=== PATIENT | female | born 1970 ===

== ENCOUNTER 2023-02-22 19:38 | Emergency (ER) | payer BC, SELFPAY ==
[2023-02-22 19:49] VITALS: BP 150/84; PULSE 60; RESP 16; TEMP 36.7; O2SAT 97; BMI 45.4
--- NOTE | 2023-02-22 20:31 | W.ED.ARRPALP ---
HPI - Arrhythmia/Palpitations General: Chief Complaint: Arrhythmia/Palpitations Stated Complaint: possible afib, fast heart rate Time Seen by Provider: 02/22/23 20:00 Source: patient and family (spouse) Mode of arrival: ambulatory Limitations: no limitations History of Present Illness: See nursing assessment. Patient with complaints of increased palpitations and fluttering in her chest for the past 2 days. She also had some mild substernal chest discomfort about a week ago. She denies any chest pain now. She states she felt like this might be due to her asthma so she has been taking albuterol inhaler more often than usual. She denies any shortness of breath at this time. She denies any fever. Denies any cough. Denies any abdominal pain. Denies any back pain. She states that her Apple Watch picked up arrhythmia on the watch. It diagnosed the arrhythmia as atrial fibrillation. I did inspect the arrhythmia that she was talking about. The arrhythmia appears to be normal sinus rhythm with occasional PACs. This is consistent with her telemetry here. I did not see the atrial fibrillation. She does drink coffee. Associated symptoms: Deny anxiety, nausea, pre-syncope, syncope or vomiting Review of Systems Const: Denies: fever(s) or chills Eyes: Denies: change in vision ENMT: Denies: throat pain Card: Reports: chest pain, palpitations and irregular heart rhythm; Denies: edema, swelling of feet/ankles, lightheadedness, syncope or pre-syncope Resp: Denies: dyspnea or wheezing GI: Denies: abdominal pain, nausea or vomiting : Denies: flank pain Musc: Denies: neck pain or back pain Skin/Breast: Denies: rash or pruritus Neuro: Denies: headache(s) or numbness in extremities Psych: Denies: anxiety Pop/Lymph: Denies: enlarged lymph nodes PFSH ED Supplemental PFSH Information: History of thyroidectomy on thyroid supplements Physical Exam Const: COMMON NORMALS: no acute distress, patient oriented x3, no limitations and well nourished GENERAL APPEARANCE: cooperative HENMT: COMMON NORMALS: normocephalic and atraumatic HEAD & SCALP: normocephalic and atraumatic FACE & SINUS: normal facial exam Eye: COMMON NORMALS: EOMs intact bilaterally Neck/C-Spine: COMMON NORMALS: full ROM, no lymphadenopathy, supple and no meningeal signs GENERAL: Yes normal visual inspection OTHER: No thyroid nodules palpated Lymph: LYMPHATIC: no lymphadenopathy noted Chest: COMMONS NORMALS: normal inspection of the chest and normal palpation of entire chest wall CHEST: No Ecchymosis present and No rash Resp: COMMON NORMALS: normal respiratory effort, No retractions and clear to auscultation bilaterally EFFORT & INSPECTION: No respiratory distress AUSCULTATION: clear to auscultation bilaterally Cardio: COMMON NORMALS: regular rate, regular rhythm and Peripheral pulses 2+ throughout JUGULAR VENOUS DISTENTION: no JVD RATE: regular rate RHYTHM: regular rhythm PERIPHERAL PULSES: Peripheral pulses 2+ throughout OTHER: .No palpitations on exam. GI: COMMON NORMALS: Normal to inspection, nondistended, normoactive bowel sounds present, Soft to palpation, non-tender, No hepatosplenomegaly present and no masses PALPATION: Yes Soft to palpation and Yes No hepatosplenomegaly present OTHER: Morbid obesity. : COMMON NORMALS: Yes no CVA tenderness BLADDER/KIDNEY EXAM: Yes no CVA tenderness Back/Pelvis: COMMON NORMALS: no CVA tenderness Extremity: COMMON NORMALS: normal to inspection, full ROM and capillary refill normal Neuro: COMMON NORMALS: patient oriented x3, CN's II-XII intact bilaterally, no focal motor deficits and no sensory deficits noted MENINGEAL SIGNS: Yes no meningeal signs Psych: COMMON NORMALS: mental status grossly normal and Normal thought process present THOUGHT PROCESS: Normal thought process present Skin: COMMON NORMALS: no rashes or lesions noted and no wounds GENERAL SKIN EXAM: no rashes or lesions noted Course Vital Signs: Vital signs: Vital Signs Temperature 98.0 F 02/22/23 19:49 Pulse Rate 53 L 02/22/23 21:27 Respiratory Rate 16 02/22/23 19:49 Blood Pressure 129/74 02/22/23 21:27 Pulse Oximetry 97 02/22/23 19:49 Oxygen Delivery Me thod Room Air 02/22/23 21:27 MDM - Arrhythmia/Palpitations Medical Decision Making 52-year-old female with complaints of palpitations and fluttering in her chest. She did have chest pain last week. Telemetry here shows occasional PVCs and occasional PACs. Patient mostly in sinus bradycardia heart rate in the upper 50s and normal sinus rhythm and the rate in the 60s. Differential diagnoses include atrial fibrillation, SVT, PVCs, PACs, palpitations, ventricular tachycardia. Possible electrolyte disturbance. Lab Data 02/22/23 20:42 02/22/23 20:42 Laboratory Results WBC 6.17 10^3/uL (3.29-11.43) 02/22/23 20:42 RBC 4.87 10^6/uL (3.85-5.65) 02/22/23 20:42 Hgb 14.90 g/dL (11.27-16.99) 02/22/23 20:42 Hct 44.5 % (36-47) 02/22/23 20:42 MCV 91.4 fl (85-98) 02/22/23 20:42 MCH 30.6 pg (27-33) 02/22/23 20:42 MCHC 33.5 g/dL (30-55) 02/22/23 20:42 RDW 13.7 % (12.1-15.1) 02/22/23 20:42 Plt Count 229 10^3/cmm (157-399) 02/22/23 20:42 MPV 10.9 fL (7.4-10.4) H 02/22/23 20:42 Neut % (Auto) 47.7 % 02/22/23 20:42 Lymph % (Auto) 38.2 % 02/22/23 20:42 [place] % (Auto) 9.1 % 02/22/23 20:42 Eos % (Auto) 3.9 % 02/22/23 20:42 Baso % (Auto) 0.8 % 02/22/23 20:42 Neut # (Auto) 2.94 10^3/uL (1.8-7.7) 02/22/23 20:42 Lymph # (Auto) 2.4 10^3/uL (0.8-4.8) 02/22/23 20:42 [place] # (Auto) 0.6 10^3/uL (0.2-0.9) 02/22/23 20:42 Eos # (Auto) 0.2 10^3/uL (0.0-0.8) 02/22/23 20:42 Baso # (Auto) 0.1 10^3/uL (0.0-0.1) 02/22/23 20:42 Nucleated RBC % (auto) 0 % 02/22/23 20:42 Nucleated RBCs # 0.0 /100WBC 02/22/23 20:42 Sodium 142 mmol/L (136-145) 02/22/23 20:42 Potassium 3.7 mmol/L (3.5-5.1) 02/22/23 20:42 Chloride 104 mmol/L (98-107) 02/22/23 20:42 Carbon Dioxide 28 mmol/L (22-29) 02/22/23 20:42 Anion Gap 13.7 (5-19) 02/22/23 20:42 BUN 13 mg/dL (6-20) 02/22/23 20:42 Creatinine 0.7 mg/dL (0.5-0.9) 02/22/23 20:42 GFR Calculation 87.2 mL/min (90-130) L 02/22/23 20:42 Glucose 139 mg/dL (65-115) H 02/22/23 20:42 Calculated Osmolality 296 mOsm/kg (285-295) H 02/22/23 20:42 Calcium 9.4 mg/dL (8.5-10.5) 02/22/23 20:42 Magnesium 1.7 mg/dL (1.7-2.3) 02/22/23 20:42 Troponin T Baseline 6 ng/L (0-10) 02/22/23 20:42 TSH 3.65 uIU/mL (0.27-4.20) 02/22/23 20:42 Free T4 1.32 ng/dL (0.82-1.77) 02/22/23 20:42 EKG Data EKG 1: I personally reviewed and interpreted this EKG as follows: EKG interpretation date: 02/22/23 EKG interpretation time: 19:50 Interpretation: Sinus arrhythmia with a heart rate of 61. Rare PACs. Normal axis, normal QRS, normal [place] interval, normal QT interval normal P waves normal T waves. Normal ST segment. Discharge Plan Discharge Patient Disposition: Home Clinical Impression: Palpitations, Premature ventricular contractions, Atrial premature contractions Condition: Stable Discharge Orders: Discharge ED (Routine); Ordered 02/22/23 Ordered By: Ayo Castellanos Referrals: Elver Campbell MD [Physician] - (call office in morning for appointment for evaluation of intermittent premature atrial and ventricular contractions.) Discharge Diet: Cardiac Discharge Activity: Increase activity as tolerated Patient Instructions: Heart Palpitations (ED), Premature Ventricular Contractions (ED), Premature Atrial Contractions (ED) Activity Restrictions/Additional Instructions: You have intermittent premature atrial contractions and premature ventricular contractions causing your palpitations. Avoid any stimulants such as caffeine or chocolate or energy drinks. Try to avoid excessive use of your albuterol inhaler. Follow-up with your family doctor in [place] or try to follow-up with local vegetable farming supervisor here for possible 24 to 48-hour Holter monitor which monitors your heartbeat and irregular beats. Return if symptoms worsen. Coding Level of Care Code ED Director Of Sports Medicine for Jasson Cordoba
[2023-02-22 20:53] LABS: Basophils # 0.1 10^3/uL (0.0-0.1); Basophils % 0.8 %; Eosinophils # 0.2 10^3/uL (0.0-0.8); Eosinophils % 3.9 %; Hematocrit 44.5 % (36-47); Lymphocytes # 2.4 10^3/uL (0.8-4.8); Lymphocytes % 38.2 %; Mean Corpuscular HGB Conc 33.5 g/dL (30-55); Mean Corpuscular Hemoglobin 30.6 pg (27-33); Mean Corpuscular Volume 91.4 fl (85-98); Mean Platelet Volume 10.9 fL (7.4-10.4); Monocytes # 0.6 10^3/uL (0.2-0.9); Monocytes % 9.1 %; Neutrophils # 2.94 10^3/uL (1.8-7.7); Neutrophils % 47.7 %; Nucleated Red Blood Cells % 0 %; Platelet Count 229 10^3/cmm (157-399); Red Blood Count 4.87 10^6/uL (3.85-5.65); Red Cell Distribution Width 13.7 % (12.1-15.1); White Blood Count 6.17 10^3/uL (3.29-11.43)
[2023-02-22 21:17] LABS: Troponin(5th) Baseline 6 ng/L (0-10)
[2023-02-22 21:27] VITALS: BP 129/74; PULSE 53
[2023-02-22 21:28] LABS: Anion Gap 13.7 (5-19); Blood Urea Nitrogen 13 mg/dL (6-20); Calcium 9.4 mg/dL (8.5-10.5); Carbon Dioxide 28 mmol/L (22-29); Chloride 104 mmol/L (98-107); Free T4 Free Thyroxine 1.32 ng/dL (0.82-1.77); Glomerular Filtration Rate 87.2 mL/min (90-130); Glucose 139 mg/dL (65-115); Magnesium 1.7 mg/dL (1.7-2.3); Osmolality Calculated 296 mOsm/kg (285-295); Potassium 3.7 mmol/L (3.5-5.1); Sodium 142 mmol/L (136-145); Thyroid Stimulating Hormone 3.65 uIU/mL (0.27-4.20)
--- NOTE | 2023-02-25 09:45 | DCPLANNER ---
air conditioning manager called patient due to no primary care physician - patient stated that she does not live in the area, but she is established with a primary care physician.
== END 2023-02-22 22:30 | disposition home or self-care (01) ==
PROVIDERS: Emergency Provider Family Medicine
DX: R00.2 Palpitations (principal); I49.3 Ventricular premature depolarization; I49.1 Atrial premature depolarization
CPT/HCPCS: 36415; 80048; 83735; 84439; 84443; 84484; 85025; 99284